=== PATIENT | female | born 1965 | race Caucasian/White ===

== ENCOUNTER → 2022-02-01 | Outpatient (CLI) | payer MEDICAID, SELFPAY ==
--- NOTE | 2022-02-01 16:40 | RAD_ITS ---
INDICATION: POSTLAMINECTOMY SYNDROME EXAMINATION/TECHNIQUE: X-RAY - XR Spine Cervical 4 or 5 Views COMPARISON: None. FINDINGS: VERTEBRAE: 1. Postoperative changes with anterior plate and screw fixation from C3 to C6. Interbody fusions noted. 2. Additional pedicle screw posterior fixation extending from C4 to T2, laminectomy defects are noted at the operative levels.. 3. No fractures or hardware failure noted. No malalignment. The odontoid process is intact. Normal appearance of the craniocervical junction. DISCS: Extensive postoperative changes appear to abut effusion anterior posterior fixation are noted. NECK SOFT TISSUES: No prevertebral soft tissue widening. LUNG APICES: Clear. RAD/Cerv Spine 2 or 3 Views IMPRESSION: 1. Extensive postoperative changes including anterior and posterior fixation, and interbody fusion. Laminectomy defects also present. 2. No evidence of fracture, malalignment or hardware failure. Electronically Signed: Renny Lara MD at 19:14 EST ,
--- NOTE | 2022-02-01 16:40 | RAD_ITS ---
INDICATION: POSTLAMINECTOMY SYNDROME EXAMINATION/TECHNIQUE: X-RAY - XR Spine Lumbar 2 or 3 Views COMPARISON: None. FINDINGS: VERTEBRAE: 1. Vertebral body height and alignment are maintained. Postoperative changes including pedicle screw posterior fixation from L3 to L5. Interbody fusion at the disc spaces. No evidence of fractures hardware failure or malalignment. 2. There is mild rightward convex curvature. 3. Normal appearance of the sacrum and sacroiliac joints. DISCS: Disc spaces are maintained. INCLUDED ABDOMEN: Included bowel gas pattern is non-obstructive. Moderate vascular calcifications in the aorta. RAD/Lumbar Spine 2 or 3 Views IMPRESSION: 1. Postoperative changes with pedicle screw posterior fixation and interbody fusion from L3 to L5. 2. No evidence of fracture malalignment or acute bony or paraspinous soft tissue abnormality. 3. Rightward convex curvature of the lumbar spine. Electronically Signed: Renny Lara MD at 19:19 EST ,
[2022-02-01 18:19] LABS: Amphetamine Urine VISTA NEGATIVE (<1000 ng/mL); Barbiturate Urine VISTA NEGATIVE (< 200 ng/mL); Benzodiazepine Urine VISTA NEGATIVE (< 200 ng/mL); Cocaine Urine VISTA NEGATIVE (< 300 ng/mL); Ecstacy Urine VISTA NEGATIVE (< 500 ng/mL); Methadone Urine VISTA NEGATIVE (< 300 ng/mL); PCP Urine VISTA NEGATIVE (< 25 ng/mL); THC Urine VISTA NEGATIVE (< 50 ng/mL); Vista UDS pH Range 5
== END | disposition home or self-care (01) ==
PROVIDERS: Referring Provider Anesthesiology Pain Medicine; Visit Provider Anesthesiology Pain Medicine
DX: M96.1 Postlaminectomy syndrome, not elsewhere classified (principal); F11.20 Opioid dependence, uncomplicated
CPT/HCPCS: 72040; 72100; 80307